=== PATIENT | male | born 1985 | race Caucasian/White ===

== ENCOUNTER 2018-01-22 08:30 | Emergency (ER) | payer OTHER ==
[~2018-01-22] VITALS: Ht 180.3 cm; Wt 115.7 kg
[~2018-01-22 08:30] MED LIST: HYDR-3110
[2018-01-22 08:45] VITALS: BP_SYST 132
[2018-01-22] MEDS: ONDANSETRON HCL 4 MG/2 ML VIAL IVP ONE (09:29)
[2018-01-22] MEDS: MECLIZINE HCL 25 MG TABLET (ANITVERT) PO ONE (09:29)
[2018-01-22] MEDS: NACL 0.9% 1,000 ML IV ONE (09:30)
[2018-01-22 09:44] LABS: HEMATOCRIT 46.3 % (36-54); HEMOGLOBIN 16.3 g/dL (14.0-18.0); MEAN CORPUSCULAR HEMOGLOBIN 30 pg (27-31); MEAN CORPUSCULAR HGB CONC 35 % (32-36); MEAN CORPUSCULAR VOLUME 86 fL (79.0-98.0); PLATELET COUNT (AUTO) 415 K/uL (130-430); RED BLOOD CELL COUNT(AUTO) 5.37 MIL/uL (4.2-6.2); RED CELL DISTRIBUTION WIDTH 11.7 % (9.0-15.0)
[2018-01-22 09:53] LABS: CALCIUM 9.3 mg/dL (8.4-11.0); CREATININE 1.01 mg/dL (0.55-1.30); POTASSIUM 3.9 mmol/L (3.5-5.1)
[2018-01-22 09:57] LABS: ALBUMIN 3.6 g/dL (3.4-4.8); TOTAL BILIRUBIN 0.5 mg/dL (0.0-1.0)
[2018-01-22 10:05] LABS: BASOPHILS % (MANUAL) 1 % (0-2); EOSINOPHILS % (MANUAL) 0 % (0-7); LYMPHOCYTES % (MANUAL) 16 % (20-46); MONOCYTES % (MANUAL) 5 % (0-11)
[2018-01-22 11:55] VITALS: BP_SYST 128
== END 2018-01-22 11:55 | disposition short-term general hospital (02) ==
LOC: SED 08:30
DX: D72.829 Elevated white blood cell count, unspecified (principal); E87.2 Acidosis; Z90.49 Acquired absence of other specified parts of digestive tract
CPT/HCPCS: 36415; 70450; 71045; 80053; 83605; 85007; 85027; 87040; 96361; 96374; 99285; J2405; J7030; J8597

== ENCOUNTER 2021-04-15 13:38 | Emergency (ER) | payer OTHER, SELFPAY ==
[~2021-04-15] VITALS: Ht 180.3 cm; Wt 120.2 kg
[~2021-04-15 13:38] MED LIST changes: -HYDR-3110; +HYDR-4280
--- NOTE | 2021-04-15 13:40 | NUR ---
Pt triaged and placed in tent.
--- NOTE | 2021-04-15 13:45 | NUR ---
Pt walked in to ER with c/o chest wall pain and congestion x2 days, reports recently tested positive for covid. V/S stable, sats 97% on RA. No acute distress noted.
--- NOTE | 2021-04-15 13:57 | NUR ---
ES Goldstein at bedside examining patient.
[2021-04-15 13:59] VITALS: BP_SYST 146
[2021-04-15 14:20] VITALS: BP_SYST 146
--- NOTE | 2021-04-15 14:22 | NUR ---
Patient given written and verbal discharge instructions and verbalizes understanding. ER MD discussed with patient the results and treatment provided. Patient in stable condition. ID arm band removed. Patient educated on pain management and to follow up with PMD. Pain Scale 0/10. Opportunity for questions provided and answered. Medication side effect fact sheet provided.
== END 2021-04-15 14:22 | disposition home or self-care (01) ==
LOC: SED 13:38
DX: U07.1 COVID-19 (principal); R07.89 Other chest pain; R09.81 Nasal congestion; J34.89 Other specified disorders of nose and nasal sinuses
CPT/HCPCS: 93005; 99283

== ENCOUNTER 2021-04-24 13:28 | Emergency (ER) | payer OTHER, SELFPAY ==
[~2021-04-24] VITALS: Ht 180.3 cm; Wt 119.7 kg
[2021-04-24 13:28] VITALS: BP_SYST 121
--- NOTE | 2021-04-24 13:45 | NUR ---
Patient to ER bed T1 to gown for evaluation. Side rails up.
[2021-04-24 14:10] VITALS: BP_SYST 121
--- NOTE | 2021-04-24 14:10 | NUR ---
Patient left without being seen.
== END 2021-04-24 14:10 | disposition left against medical advice (07) ==
LOC: SED 13:28
DX: U07.1 COVID-19 (principal); R06.02 Shortness of breath; Z53.21 Procedure and treatment not carried out due to patient leaving prior to being seen by health care provider

== ENCOUNTER 2023-09-08 04:53 | Emergency (ER) | payer OTHER ==
[~2023-09-08] VITALS: Ht 180.3 cm; Wt 124.7 kg
[2023-09-08 04:55] VITALS: BP_SYST 162; PULSE 124; RESP 20; TEMP 98.3; O2SAT 97
[2023-09-08] MEDS ORDERED: NACL 0.9% 1,000 ML IV ONE (05:00)
[2023-09-08 05:44] LABS: BASOPHILS # (AUTO) 0.1 K/uL (0.0-0.2); BASOPHILS % (AUTO) 0.6 % (0.0-2.0); EOSINOPHILS # (AUTO) 0.2 K/uL (0.0-0.4); EOSINOPHILS % (AUTO) 1.9 % (0.0-4.0); HEMATOCRIT 42.2 % (36-54); LYMPHOCYTES # (AUTO) 1.5 K/uL (1.0-5.5); LYMPHOCYTES % (AUTO) 12.2 % (20.5-51.5); MEAN CORPUSCULAR HEMOGLOBIN 30 pg (27-31); MEAN CORPUSCULAR HGB CONC 36 % (32-36); MEAN CORPUSCULAR VOLUME 85 fL (79.0-98.0); MONOCYTES % (AUTO) 8.6 % (1.7-9.3); NEUTROPHILS # (AUTO) 9.2 K/uL (1.8-7.7); NEUTROPHILS % (AUTO) 76.7 % (40.0-70.0); PLATELET COUNT (AUTO) 253 K/uL (130-430); RED BLOOD CELL COUNT(AUTO) 4.99 MIL/uL (4.2-6.2); RED CELL DISTRIBUTION WIDTH 12.6 % (9.0-15.0)
[2023-09-08 06:08] LABS: INFLUENZA TYPE A Negative (NEGATIVE); INFLUENZA TYPE B NEGATIVE (NEGATIVE)
[2023-09-08 06:15] LABS: ANION GAP 12 (5-15); CALCIUM 9.3 mg/dL (8.4-11.0); CARBON DIOXIDE 25 mmol/L (23-29); CHLORIDE 100 mmol/L (98-107); CREATININE 1.03 mg/dL (0.55-1.30); GFR AFRICAN AMERICAN 105 mL/min (>90); GLUCOSE 110 mg/dL (74-106); POTASSIUM 3.5 mmol/L (3.5-5.1); SODIUM SERUM 137 mmol/L (136-145); UREA NITROGEN, BLOOD 11 mg/dL (8-21)
[2023-09-08 06:20] LABS: GFR NON AFRICAN-AMERICAN 86 mL/min (>90)
[2023-09-08] MEDS ORDERED: METHYLPREDNISOLONE SOD SUCC 40 MG/ML VIAL IVP ONE (06:30)
[2023-09-08] MEDS ORDERED: ALBUTEROL SULFATE 0.083% 2.5 MG/3 ML VIAL.NEB INH ONE (06:30)
[2023-09-08] MEDS ORDERED: IPRATROPIUM BROM 0.5 MG/2.5 ML VIAL.NEB (ATROVENT) INH ONE (06:30)
[2023-09-08] MEDS ORDERED: GUAI5SYR PO (07:54)
[2023-09-08] MEDS ORDERED: PSEU30TA36 PO (07:54)
[2023-09-08] MEDS ORDERED: PRED20TA PO (07:54)
[2023-09-08 08:42] VITALS: BP_SYST 125; PULSE 107; RESP 18; TEMP 98.6; O2SAT 97
== END 2023-09-08 05:00 | disposition home or self-care (01) ==
LOC: SED 04:53
DX: J32.8 Other chronic sinusitis (principal); J40 Bronchitis, not specified as acute or chronic; J06.9 Acute upper respiratory infection, unspecified; R05.9 Cough, unspecified; R09.81 Nasal congestion; R07.9 Chest pain, unspecified; Z79.899 Other long term (current) drug therapy; Z20.822 Contact with and (suspected) exposure to COVID-19
CPT/HCPCS: 99285; 96374; 71045; 96361; 87426; 80048; 83880; 85025; 87040; 84484; 36415; 93005; 94640; 83605; 87804 ×2; J7030; J1030